=== PATIENT | female | born 1985 | race Caucasian/White ===

== ENCOUNTER 2018-12-10 09:41 | Emergency (ER) | payer BC ==
--- OUTSIDE RECORDS SUMMARY | 2018-12-10 10:19 | XMS REPORT | Continuity of Care Document ---
:1985 External Reference #:[id number] Author Name Eleazar Almazan M.D. (transmitted by agent of provider Tyesha Garcia) Address [address] [place] [address] Problems Active Problems Provider Date Carpal tunnel syndrome Esmer Jackman M.D. Onset: 02/03/2015 Migraine without aura Esmer Jackman M.D. Onset: 02/03/2015 Social History Type Date Description Comments Sex Unknown ETOH Use Rarely consumes alcohol Tobacco Use Start: Unknown End: Does not smoke Unknown Recreational Drug Use Denies Drug Use Smoking Status Reviewed: 10/23/18 Does not smoke Exercise Type/Frequency Exercises sporadically Exercise Type/Frequency SHe did Kristine and aerobic exercise Allergies, Adverse Reactions, Alerts Active Allergies Reaction Severity Comments Date Strawberries 08/30/2017 Carrot Extract 08/30/2017 Inactive Allergies NKDA 06/15/2011 Medications Active Medications SIG Qnty Indications Ordering Date Provider Nifedipine Take one 30caps Skyforest 10mg Capsules capsule/tablet Zabrina Almazan 9 daily by mouth as needed for raynaud's BD TB Syringe 25GX5/8" use every week 90units Eleazar subcutaneously With Zabrina Almazan 9 Cyanocobalamin Hydroxychloroquine take one 90tabs A69.20 Eleazar Sulfate capsule/tablet Zabrina Almazan 8 200mg Tablets daily by mouth Diclofenac Sodium take 1 tablet by 60tabs A69.20 Eleazar 75mg mouth twice a day Zabrina Almazan [address] if needed for pain (Avoid Other NSAIDS) Cyanocobalamin sq once every 2 75units Eleazar 01/04/201 1000mcg/ML weeks;; please Zabrina Amlazan 7 Solution provide appropriate needle and syringes for injection Butalbital/Acetaminophen 1 po 4 times daily 60tabs Unknown /C prn 0 50-325mg Tablets Vitamin C 1 by mouth every Unknown 500mg Capsules day 0 Lifitegrast 1 drop in each eye Unknown twice daily 0 5-MTHF 1 tab po bid Unknown 5mg Capsules 0 Multivitamin Adult 1 by mouth every Unknown Tablets day 0 1 by mouth every Unknown Tablets day 0 Medications Administered in Office Medication SIG Qnty Indications Ordering Provider Date Influenza Virus Vaccine Unknown 12/08/2015 Injection Immunizations Description No Information Available Vital Signs Date Vital Result Comment 10/23/2018 2:36pm Height 65 inches 5'5" Weight 168.00 lb Heart Rate 87 /min BP Systolic Sitting 108 mmHg BP Diastolic Sitting 62 mmHg Pain Level 3 O2 % BldC Oximetry 98 % BMI (Body Mass Index) 28.0 kg/m2 04/25/2018 8:47am Height 65 inches 5'5" Weight 153.00 lb Heart Rate 85 /min BP Systolic Sitting 108 mmHg BP Diastolic Sitting 72 mmHg Respiratory Rate 14 /min Pain Level 3 BMI (Body Mass Index) 25.5 kg/m2 Results Test Date Facility Test Result H/L Range Note Laboratory test 10/17/2018 [facility] Erythrocyte Sed 47 mm/Hr High 0-[address] [place] [address] [phone] C Reactive Protein 5.78 mg/L Normal <8.01 Vitamin B12 10/17/2018 [facility] Vitamin B12 467 pg/mL Normal 180-914 [address] Folate [address] [place] [address] [phone] Folic Acid (Folate) > 20.00 ng/mL >3.99 CBC Auto 10/17/2018 [facility] White Blood 10.7 10^3/uL Normal 3.5-10.[address] [place] [address] [phone] Red Blood Count 3.62 10^6/uL Low 3.70-4.87 Hemoglobin 11.9 g/dL Low 12.0-16.0 Hematocrit 34 % Low 35-47 Mean Corpuscular Volume 94 fL Normal 80-97 Mean Corpuscular Hemoglobin 33 pg High 27-31 Mean Corpuscular HGB Conc 35 g/dL Normal 31-36 Red Cell Distribution Width 13 % Normal 10-15 Platelet Count 247 10^3/uL Normal 150-450 Mean Platelet Volume 9.7 fL Normal 7.4-10.4 Abs Neutrophils 8.2 10^3/uL High 1.5-7.7 Abs Lymphocytes 1.9 10^3/uL Normal 1.0-4.8 Abs Monocytes 0.5 10^3/uL Normal 0-0.8 Abs Eosinophils 0.1 10^3/uL Normal 0-0.6 Abs Basophils 0.0 10^3/uL Normal 0-0.2 Abs Nucleated RBC 0.0 10^3/uL Granulocyte % 76.8 % Lymphocyte % 18.0 % Monocyte % 4.5 % Eosinophil % 0.5 % Basophil % 0.2 % Nucleated Red Blood Cells % 0.0 Comp Metabolic 10/17/2018 [facility] Sodium 137 mmol/L Normal 135-[address] [place] [id number] [phone] Potassium 3.8 mmol/L Normal 3.5-5.0 Chloride 103 mmol/L Normal 101-111 Co2 Carbon Dioxide 25 mmol/L Normal 22-32 Anion Gap 9 mmol/L Normal 2-11 Glucose 114 mg/dL High 70-100 Blood Urea Nitrogen 10 mg/dL Normal 6-24 Creatinine 0.54 mg/dL Normal 0.51-0.95 BUN/Creatinine Ratio 18.5 Normal 8-20 Calcium 9.1 mg/dL Normal 8.6-10.3 Total Protein 6.0 g/dL Low 6.4-8.9 Albumin 3.8 g/dL Normal 3.2-5.2 Globulin 2.2 g/dL Normal 2-4 Albumin/Globulin Ratio 1.7 Normal 1-3 Total Bilirubin 0.30 mg/dL Normal 0.2-1.0 Alkaline Phosphatase 63 U/L Normal 34-104 Alt 17 U/L Normal 7-52 Ast 20 U/L Normal 13-39 Egfr Non- 129.2 >60 Egfr 156.4 >60 2 1 Normal Range 180 to 914 Indeterminate Range 145 to 180 Deficient Range <145 2 Because ethnic data is not always readily available, this report includes an eGFR for both -Americans and non- Americans. The National Kidney Disease Education Program (NKDEP) does not endorse the use of the MDRD equation for patients that are not between the ages of 18 and 70, are , have extremes of body size, muscle mass, or nutritional status, or are non- or non-. According to the National Kidney Foundation, irrespective of diagnosis, the stage of the disease is based on the level of kidney function: Stage Description GFR(mL/min/1.73 m(2)) 1 Kidney damage with normal or decreased GFR 90 2 Kidney damage with mild decrease in GFR 60-89 3 Moderate decrease in GFR 30-59 4 Severe decrease in GFR 15-29 5 Kidney failure <15 (or dialysis) Procedures Description No Information Available Medical Devices Description No Information Available Encounters Type Date Location Provider Dx Diagnosis Office Visit 10/23/2018 Rheumatology Eleazar Almazan M35.9 Systemic 2:[facility] involvement of connective tissue, unspecified I73.00 Raynaud's syndrome without gangrene E53.8 Deficiency of other specified B group vitamins Z79.899 Other oysterman (current) drug therapy Assessments Date Code Description Provider 10/23/2018 M35.9 Systemic involvement of connective tissue, Eleazar Almazan M.D. unspecified 10/23/2018 I73.00 Raynaud's syndrome without gangrene Eleazar Almazan M.D. 10/23/2018 E53.8 Deficiency of other specified B group vitamins Eleazar Almazan M.D. 10/23/2018 Z79.899 Other oysterman (current) drug therapy Eleazar Almazan M.D. Plan of Treatment Future Appointment(s):04/23/2019 10:00 am - [facility] Ven[facility]10/23/2018 - Eleazar Almazan M.D.M35.9 Systemic involvement of connective tissue, [id number] Raynaud's syndrome without hhvfarlpS13.8 Deficiency of other specified B group [id number] Other residential (current) drug therapyFollow up:Follow up in 6 months or sooner if needed Functional Status Description No Information Available Mental Status Description No Information Available Referrals Description No Information Available
[2018-12-10 10:27] VITALS: BP 90/72
--- NOTE | 2018-12-10 11:08 | UC ---
Lower Extremity/Ankle HPI - HPI Summary HPI Summary: Patient is 33year old female , who present today to the urgent care with right great toe pain and swelling . Kecia night noticed some dried blood under right great toe. Thinks she might have stubbed it. Now has redness and tenderness. She is currently 31 weeks . No drainage. Denies any fever, chills, cough chest pain or shortness of breath . Denies any abdominal pain , nausea or vomiting , diarrhea or constipation. - History of Current Complaint Chief Complaint: UCLowerExtremity Stated Complaint: RIGHT GREAT TOE COMPLAINT Time Seen by Provider: 12/10/18 10:24 Hx Obtained From: Patient ?: Yes Pain Intensity: 3 PMH/Surg Hx/FS Hx/Imm Hx - Additional Past Medical History Additional PMH: Past Medical History : Autoimmune disorder, Shekhar's Past Surgical History: Laparoscopy x 2, wisdom tooth Family History : non contributory Social History : No alcohol, non smoker, no drug use. Previously Healthy: Yes - Surgical History Surgical History: Yes Surgery Procedure, Year, and Place: LAPROSCOPY X2 (MOST RECENT 10/2017). WISDOM TEETH - Family History Known Family History: Positive: Non-Contributory - Social History Alcohol Use: None Substance Use Type: None Smoking Status (MU): Never Smoked Tobacco Review of Systems All Other Systems Reviewed And Are Negative: Yes Constitutional: Positive: Negative Skin: Positive: Other - Swelling and redness of the toenail Eyes: Positive: Negative ENT: Positive: Negative Respiratory: Positive: Negative Cardiovascular: Positive: Negative Gastrointestinal: Positive: Negative Genitourinary: Positive: Negative Motor: Positive: Negative Neurovascular: Positive: Negative Musculoskeletal: Positive: Negative Neurological: Positive: Negative Psychological: Positive: Negative Is Patient Immunocompromised?: No Physical Exam - Summary Physical Exam Summary: Vital Signs Reviewed: Yes A+Ox3, no distress Eyes: Conjunctiva Clear ENT: Hearing grossly normal neck: supple Respiratory: Positive: No respiratory distress, No accessory muscle use Cardiovascular: skin color reflect adequate perfusion Musculoskeletal Exam: CHANG x 4 without difficulty Neurological: Positive: Alert, ambulatory without difficulty Psychological: Positive: Normal Response To Family Skin: left great with swelling and redness noted medially to the toenail. No abscess noted. No drainage noted . There is a stain which is greenish in color on the distal end of the toenail and also on the area of redness. Did not come off with the alcohol swab Triage Information Reviewed: Yes Vital Signs: Initial Vital Signs Temp 98.3 F 12/10/18 10:19 Pulse 85 12/10/18 10:19 Resp 16 12/10/18 10:19 BP 90/72 12/10/18 10:19 Pulse Ox 98 12/10/18 10:19 Vital Signs Reviewed: Yes Lower Extremity Course/Dx - Course Course Of Treatment: During the visit today, we discussed the findings and further plan to treat it . There is a stain which is greenish in color on the distal end of the toenail and also on the area of redness. I tried to remove it with alcohol swelling but it did not come off. Unsure of the green stain and patient is also not sure how she got that. Advised her to monitor for any worsening. I will prescribe the medication to the pharmacy . She will follow with a primary care doctor in 2 days. Advised her to monitor for any worsening Patient expressed understanding . - Differential Dx/Diagnosis Provider Diagnosis: Paronychia of great toe of right foot Discharge ED - Sign-Out/Discharge Documenting (check all that apply): Patient Departure All imaging exams completed and their final reports reviewed: No Studies - Discharge Plan Condition: Stable Disposition: HOME Prescriptions: Cephalexin CAP* [Keflex CAP*] 500 mg PO TID 7 Days #21 cap Patient Education Materials: Paronychia (ED) Referrals: Gabby Gray MD [Primary Care Provider] - 2 Days Additional Instructions: Please start taking the medication as prescribed to the pharmacy . Follow up with your primary care doctor in 2 days. Return to Urgent care / ER if symptoms get worse. - Billing Disposition and Condition Condition: STABLE Disposition: Home
== END 2018-12-10 11:30 | disposition home or self-care (01) ==
LOC: UCCORT 09:41
DX: O99.713 Diseases of the skin and subcutaneous tissue complicating pregnancy, third trimester (principal); L03.031 Cellulitis of right toe; Z3A.31 31 weeks gestation of pregnancy
CPT/HCPCS: 99212; G0463

== ENCOUNTER 2019-02-09 00:27 | Inpatient (IN) | payer BC ==
[2019-02-09] MEDS ORDERED: Buffered Lidocaine 1% SYRIN* 1 ML/SYRINGE INTRADERM ONE (01:02)
[2019-02-09] MEDS ORDERED: Lactated Ringers 1000 ML Bag* 1,000 ML IV ONE ×2 (01:02→05:10)
--- NOTE | 2019-02-09 01:30 | HP ---
General Information - Reason for Visit contractions increasing in frequency and intensity - General Information Maternal Age: 33 Grav: 1 Determined By: LMP Gestational Age in Weeks/Days: 40w2d Maternal Blood Type and Rh: O Positive - Results this Serology/RPR Result: Non-Reactive Rubella Result: Immune HBsAg Result: Negative HIV Result: Negative GBS Culture Result: Negative Past Medical History Pertinent Past Medical History: See Records - non-specific autoimmune disease on plaquenil, endometriosis, migraines, anxiety, lyme disease, chronic back pain, raynaud's syndrome, MTHFR Pertinent Past Surgical History: See Records - laparoscopy x 2, hysteroscopy, wisdom tooth extraction Pertinent Family History: See Records - Antepartal Records Antepartal Records: Reviewed, Complicated by: - non-specific autoimmune issues treated with plaquenil Review of Systems Constitutional: Uncomfortable CV Complaint: No Respiratory: Shortness of Breath: No Gastrointestinal: No Nausea/Vomiting, Normal Bowel Movement Genitourinary: Bleeding, No Dysuria, No Leaking Fluid Musculoskeletal: No Complaint, No Epigastric Pain Neurological: No Headache, No Visual Changes Movement: Normal Exam Allergies/Adverse Reactions: Allergies No Known Allergies Allergy (Verified 12/10/18 11:26) Temp 99 Pulse 105 RR 18 BP 148/95 O2 saturation 100% - Measurements Height: 5 ft 5 in Weight: 190 lb Body Mass Index (BMI): 31.6 - Exam Breast: Breast Exam Deferred CVA: No CVA Tenderness Extremities: No Edema Heart: Normal Rhythm/Heart Sounds HEENT: No Significant Findings Lungs: Clear Bilaterally Rectal: Rectal Exam Deferred Reflexes: DTR 2+ Thyroid: No Thyromegaly - Abdominal Exam Abdomen Exam: Non-Tender, Fundal Height Consistent with Dates - Ultrasound/Biophysical Profile Ultrasound Status: Not Done Targeted Exam Findings Estimated Weight: 7#8oz Cervical Exam: 4cm Effacement: 80% Station: -1 Presenting Part: Vertex Membrane Status: Intact Bleeding/Discharge: Bloody Show EFM Findings - External Monitor Findings Baseline Heart Rate: 135 External Monitor Findings: Accelerations Present, No Pattern of Variable or Late Decelerations, Variability Moderate, Baseline Stable External Monitor Findings Comment: category I FHT Contractions: Regular, Moderate, 45-90 Seconds Contraction Frequency: q3-4 minutes Assessment/Plan - Assessment 33 y/o G1 at 40w2d in early labor complicated by non-specific autoimmune disorder treated with plaquenil , all increased surveillance in WNL RH+/Rubella Immune GBS negative Elevated BP on admission, likely secondary to discomfort with labor, will collect PreE laboratory evaluation, pt is asymptomatic - Plan Plan: Observe, Admit - Anticipate Vaginal Delivery Plan Comment: Admit to L&D Collect PreEclampsia laboratory evaluation, insert IV Expectantly manage, ochoa regularly, has changed cervix since exam 2 days ago, consistent with early labor, plan was for IOL later today, will expectantly manage at this time, augment if needed, anticipate vaginal delivery Continue Plaquenil - Date/Time of Admission Date of Admission: 02/09/19 Time of Admission: 01:00
[2019-02-09 01:51] LABS: ABS Lymphocytes 2.5 10^3/ul (1.0-4.8); ABS Monocytes 0.7 10^3/ul (0-0.8); ABS Neutrophils 6.8 10^3/ul (1.5-7.7); Eosinophil % 0.5 %; Hematocrit 38 % (35-47); Hemoglobin 13.4 g/dL (12.0-16.0); Lymphocyte % 24.9 %; Mean Corpuscular HGB Conc 35 g/dL (31-36); Mean Corpuscular Hemoglobin 33 pg (27-31); Mean Corpuscular Volume 95 fL (80-97); Mean Platelet Volume 11.8 fL (7.4-10.4); Nucleated Red Blood Cells % 0.1; Platelet Count 174 10^3/uL (150-450); Red Blood Count 4.01 10^6 /uL (3.70-4.87); Red Cell Distribution Width 13 % (10-15)
[2019-02-09] MEDS ORDERED: Lactated Ringers 1000 ML Bag* 1,000 ML IV SCH ×2 (02:00→06:00)
[2019-02-09 02:10] LABS: Albumin 3.4 g/dL (3.2-5.2); Albumin/Globulin Ratio 1.1 (1-3); BUN/Creatinine Ratio 14.1 (8-20); Calcium 9.6 mg/dL (8.6-10.3); EGFR African American 102.3 (>60); EGFR Non-African American 84.5 (>60); Total Bilirubin 0.3 mg/dL (0.2-1.0); Total Protein 6.4 g/dL (6.4-8.9); Uric Acid 5.5 mg/dL (2.3-6.6)
[2019-02-09 02:12] LABS: Urine Benzodiazepine Screen None Detected (None Detect); Urine Opiates Screen None Detected (None Detect)
[2019-02-09 02:13] LABS: Potassium 3.9 mmol/L (3.5-5.0)
--- NOTE | 2019-02-09 03:58 | PN ---
Progress Note - Progress Note Date of Service: 02/09/19 Note: Pt requesting Epidural. Laboratory evaluation WNL. FHT reactive and reassuring, category I. Continues to contract regularly. OK for epidural per OB perspective, Anesthesia notified for consult. Will re-examine once comfortable after epidural. Rodney Terence, OBGYN
[2019-02-09] MEDS ORDERED: OBEPIDURAL* 250 ML EPIDURAL ONE (04:04)
[2019-02-09] MEDS ORDERED: EPHEDrine (Pressors)* 50 MG/ML VIAL IV PUSH PRN ×2 (05:10)
[2019-02-09] MEDS ORDERED: Sodium Citrate/Citric Acid* 15 ML UDC PO PRN (05:10)
[2019-02-09] MEDS ORDERED: Famotidine TAB* 20 MG PO PRN (05:10)
[2019-02-09] MEDS ORDERED: Lactated Ringers 1000 ML Bag* 500 ML IV PRN ×2 (05:10)
[2019-02-09] MEDS ORDERED: Phenylephrine 40 MCG/ML SYRINGE IV PUSH PRN ×2 (05:10)
[2019-02-09] MEDS ORDERED: OBEPIDURAL* 250 ML EPIDURAL SCH (06:00)
[2019-02-09] MEDS ORDERED: Hydroxychloroquine TAB* 200 MG PO SCH (09:00)
--- NOTE | 2019-02-09 09:03 | PN ---
Progress Note - Progress Note Date of Service: 02/09/19 SOAP: Subjective: Pt comfortable with epidural, resting on left side. at bedside. Pt reports SROM. Objective: SROM to pink-tinged fluid FHR: Baseline 130/ moderate variability/ + accels/ no decels UCs: 4-5 minutes Cervical exam deferred BP: 129/80, Temp:99.8 Assessment: Pt comfortable, no evidence of acidemia or chorioamnionitis. Ctx pattern has slowed some since epidural placement, but still appears adequate. Plan: Recheck cervix in 1-2 hours or as needed. Consider Pitocin augmentation if needed.
--- NOTE | 2019-02-09 11:47 | PN ---
Progress Note - Progress Note Date of Service: 02/09/19 SOAP: Subjective: Pt fairly comfortable, experiencing some more sensation with ctx, coping well. at bedside. Objective: Cervix: 8 cm/ 100%/ 0 station/ vtx FHR: Baseline 140/ moderate variability/ + accels/ occasional variable decels UCs: 1-3 minutes Temp: 99.3 BP: 118/84 Assessment: Pt making progress although somewhat slow. No evidence of chorioamnionitis or acidemia. Plan: Position changes as tolerated. Recheck in 1-2 hours or as needed. Anticipate .
--- NOTE | 2019-02-09 13:39 | PN ---
Progress Note - Progress Note Date of Service: 02/09/19 Note: Pt feeling more pressure, some urge to push. Cervix: anterior lip/ 100%/ +1/ vtx. FHR Category I. UCs 1-4 minutes. Impression: making good progress, getting close. Anticipate trial of pushing shortly.
--- NOTE | 2019-02-09 17:07 | PN ---
Progress Note - Progress Note Date of Service: 02/09/19 SOAP: Subjective: Pt laboring down at this time. Pushed for about 1.5 hours without good descent. Now taking a break to rest. Objective: VE: fully dilated/ 0-+1 station, slight caput FHR: Baseline 145/ moderate variability/ no accels/ occasional brief variable decels with good return to baseline UCs: 3-5 minutes Fluid clear, ROM about 8 hours Assessment: Pt with no evidence of chorioamnionitis or acidemia. Ineffective pushing efforts. Plan: Rest and labor down for a bit then try pushing again with continuous support.
[2019-02-09] MEDS ORDERED: Oxytocin in LR* 20 UNITS/1,000 ML BAG IVPB ONE (18:48)
[2019-02-09] MEDS ORDERED: Oxytocin in LR* 20 UNITS/1,000 ML BAG IVPB SCH (20:00)
[2019-02-10] MEDS ORDERED: Dibucaine 1% 28.35 GM TUBE ONE (01:17)
[2019-02-10] MEDS ORDERED: Witch Hazel PAD* JAR ONE (01:17)
[2019-02-10] MEDS ORDERED: Dibucaine 1% 28.35 GM TUBE PR PRN (01:19)
[2019-02-10] MEDS ORDERED: Glycerin ADULT SUPP PR PRN (01:19)
[2019-02-10] MEDS: Ibuprofen TAB* 600 MG PO PRN ×4 (01:57→21:24)
[2019-02-10] MEDS ORDERED: Oxytocin in LR* 20 UNITS/1,000 ML BAG IVPB SCH (02:00)
[2019-02-10] MEDS ORDERED: Lactated Ringers 1000 ML Bag* 1,000 ML IV SCH (02:00)
[2019-02-10] MEDS: Witch Hazel PAD* JAR TOPICAL PRN (02:08)
[2019-02-10] MEDS ORDERED: Lidocaine 1% INJ* 10 MG/ML 30 ML SDV ONE (02:08)
[2019-02-10] MEDS: Acetaminophen TAB* 325 MG PO PRN ×4 (04:49→21:25)
[2019-02-10] MEDS: Docusate CAP* 100 MG PO SCH ×3 (07:54→21:25)
--- NOTE | 2019-02-10 08:48 | PROCNOTE ---
[facility] OB: Delivery Note - Delivery A Date of : 02/09/19 Time of : 22:46 [place] Sex: Female Weight at : 3.745 kg Score 1 Minute: 9 Score 5 Minutes: 9 Gestational Age in Weeks and Days at Delivery: 40 Weeks and 2 Days Delivery Method: Spontaneous Vaginal Labor: Spontaneous Did Patient attempt ?: N/A, No Previous Amniotic Fluid: Clear Estimated Blood Loss: 400 Anesthesia/Analgesia: CEI for Labor Delivered By: Barby Ayala - Nursery Level of Nursery: Regular/Bedside - Perineum Perineal Injury: 2nd Degree Perineal Repair: By Delivering Practioner - Events Delivery Events of Note: Pitocin During Labor, Supplemental O2 to Mother - Additional Delivery Notes Additional Delivery Notes: Pt admitted to L&D in active labor. Eventually requested and received epidural with good pain relief. Pt made steady progress to full dilation. Pushing initiated but pt was unable to push effectively. After 1.5 hours of pushing with minimal descent, decision made to rest and labor down. During this time, ctx spaced out significantly so low dose Pitocin was initiated. Eventually pushing restarted, this time with much improved effort and descent. Pt coached on pushing. Progress steady, although FHR exhibited decelerations. O2 applied and position changed regularly. Pt eventually brought to and was coached through slow, controlled delivery of the head. Double nuchal cord noted. 's head kept level with maternal pelvis while body delivered with additional loop of cord around torso, and cord unwound from infant's neck and torso. Infant placed on maternal abdomen with vigorous cry and good tone, HR>100. dried and stimulated. Placenta delivered spontaneously, willis side, intact. Pitocin initiated at 250 cc/ hr. Bleeding well controlled. Second degree perineal laceration noted, repair completed with 3-0 Rapide suture resulting in good hemostasis and tissue approximation. Pt and infant stable at this time, anticipate normal course.
[2019-02-10 09:25] LABS: ABS Lymphocytes 2.3 10^3/ul (1.0-4.8); ABS Monocytes 1.1 10^3/ul (0-0.8); ABS Neutrophils 15.7 10^3/ul (1.5-7.7); Eosinophil % 0.1 %; Hematocrit 32 % (35-47); Hemoglobin 11.1 g/dL (12.0-16.0); Lymphocyte % 11.9 %; Mean Corpuscular HGB Conc 35 g/dL (31-36); Mean Corpuscular Hemoglobin 33 pg (27-31); Mean Corpuscular Volume 95 fL (80-97); Mean Platelet Volume 10.8 fL (7.4-10.4); Platelet Count 149 10^3/uL (150-450); Red Blood Count 3.35 10^6 /uL (3.70-4.87); Red Cell Distribution Width 14 % (10-15); White Blood Count 19.2 10^3/uL (3.5-10.8)
[2019-02-11] MEDS: Acetaminophen TAB* 325 MG PO PRN ×2 (02:11→09:15)
[2019-02-11] MEDS: Witch Hazel PAD* JAR TOPICAL PRN (02:17)
[2019-02-11] MEDS: Ibuprofen TAB* 600 MG PO PRN ×2 (05:54→12:19)
[2019-02-11] MEDS ORDERED: Ferrous Gluconate TAB* 324 MG TAB PO SCH (09:00)
[2019-02-11] MEDS: Docusate CAP* 100 MG PO SCH (09:15)
[2019-02-11 09:23] VITALS: BP 149/92
== END 2019-02-11 14:00 | disposition home or self-care (01) | DRG 560 ==
LOC: MCHOBOUT 00:27 → MCHOB 01:04
PROVIDERS: ADMIT Obstetrics & Gynecology; ATTEND Midwife
PROC: 10E0XZZ Delivery of Products of Conception, External Approach (ICD-10-PCS; principal; 2019-02-09)
PROC: 0KQM0ZZ Repair Perineum Muscle, Open Approach (ICD-10-PCS; 2019-02-09)
DX: O48.0 Post-term pregnancy (principal); Z37.0 Single live birth; O99.344 Other mental disorders complicating childbirth; F41.9 Anxiety disorder, unspecified; O70.1 Second degree perineal laceration during delivery; O69.81X0 Labor and delivery complicated by cord around neck, without compression, not applicable or unspecified; O69.89X0 Labor and delivery complicated by other cord complications, not applicable or unspecified; O75.89 Other specified complications of labor and delivery; D89.89 Other specified disorders involving the immune mechanism, not elsewhere classified; I73.00 Raynaud's syndrome without gangrene; Z3A.40 40 weeks gestation of pregnancy
CPT/HCPCS: 36415; 80053; 80307; 84550; 85025; 86850; 86900; 86901; A9270-GY